=== PATIENT | male | born 1950 | race Caucasian/White ===

== ENCOUNTER → 2023-12-26 07:53 | Outpatient (REF) | payer MEDICARE, OTHER, SELFPAY ==
[2023-12-26 09:34] LABS: ALT (SGPT) 37 U/L (0-50); AST (SGOT) 36 U/L (17-59); Albumin 4.5 g/dl (3.5-5.0); Alkaline Phosphatase 106 U/L (38-126); Blood Urea Nitrogen 19 mg/dl (9-20); Calcium 9.4 mg/dl (8.4-10.2); Carbon Dioxide 25 mmol/L (22-30); Chloride 108 mmol/L (98-107); Glucose 115 mg/dl (70-99); Potassium 4.5 mmol/L (3.5-5.1); Sodium 140 mmol/L (135-145); Total Bilirubin 0.7 mg/dl (0.2-1.3); Total Protein 7.1 g/dl (6.3-8.2); eGFR > 60.00
[2023-12-26 09:55] LABS: TSH 2.88 uIU/ml (0.47-4.68)
== END ==
LOC: REG 07:53
PROVIDERS: ATTENDING PHYSICIAN Registered Nurse; FAMILY PHYSICIAN Family Medicine
DX: E03.9 Hypothyroidism, unspecified (principal); N28.9 Disorder of kidney and ureter, unspecified
CPT/HCPCS: 36415; 80053; 84443

== ENCOUNTER → 2024-02-09 09:25 | Outpatient (REF) | payer MEDICARE, OTHER, SELFPAY | LOC: RCS 09:25 | PROVIDERS: ATTENDING PHYSICIAN Nuclear Medicine Nuclear Cardiology; FAMILY PHYSICIAN Family Medicine | DX: I25.10 Atherosclerotic heart disease of native coronary artery without angina pectoris (principal) | CPT/HCPCS: 93306 ==

== ENCOUNTER → 2024-05-16 15:18 | Outpatient (REF) | payer MEDICARE, OTHER, SELFPAY | LOC: REG 15:18 | PROVIDERS: ATTENDING PHYSICIAN Internal Medicine Gastroenterology | DX: R19.4 Change in bowel habit (principal) | CPT/HCPCS: 87328; 87329 ==

== ENCOUNTER → 2024-06-29 06:21 | Day surgery (SDC) | payer MEDICARE, OTHER, SELFPAY | LOC: GI 06:21 | PROVIDERS: ATTENDING PHYSICIAN Internal Medicine Gastroenterology | DX: R19.4 Change in bowel habit (principal); K57.30 Diverticulosis of large intestine without perforation or abscess without bleeding; K64.8 Other hemorrhoids; D12.2 Benign neoplasm of ascending colon | CPT/HCPCS: 45380; 88305; 88342 ==

== ENCOUNTER → 2024-08-03 07:42 | Outpatient (REF) | payer MEDICARE, OTHER, SELFPAY ==
[2024-08-03 08:49] LABS: % Basophils 0.4 % (0-2); % Eosinophils 2.4 % (0-6); % Immature Granulocytes 0.2 % (0-0.5); % Lymphocytes 39.9 % (20.5-51.1); % Monocytes 8.1 % (1.7-9.3); Absolute Eosinophils 0.1 10^3/uL (0-0.7); Absolute Lymphocytes 2.2 10^3/uL (1.2-3.4); Absolute Monocytes 0.4 10^3/uL (0.1-0.6); Absolute Neutrophils 2.7 10^3/uL (1.4-6.5); Hematocrit 44.6 % (39.0-52.0); Hemoglobin 15.5 g/dL (13.0-18.0); Mean Corp Hgb Conc. 34.8 g/dL (33.0-37.0); Mean Corpuscular Hgb 33.3 pg (27.0-31.0); Mean Corpuscular Volume 95.7 fL (80.0-94.0); Mean Platelet Volume 9.2 fL (7.4-10.4); Nucleated Red Blood Cells % 0 % (-); Platelet Count 170 10^3/uL (130-400); Red Blood Cell Count 4.66 10^6/uL (4.70-6.10); Red Cell Dist. Width 13.2 % (11.5-14.5); White Blood Cell Count 5.4 10^3/uL (4.8-10.8)
[2024-08-03 09:20] LABS: ALT (SGPT) 32 U/L (0-50); AST (SGOT) 29 U/L (17-59); Albumin 4.2 g/dl (3.5-5.0); Alkaline Phosphatase 92 U/L (38-126); Blood Urea Nitrogen 23 mg/dl (9-20); Calcium 9.4 mg/dl (8.4-10.2); Carbon Dioxide 24 mmol/L (22-30); Chloride 108 mmol/L (98-107); Glucose 116 mg/dl (70-99); HDL Cholesterol 57 mg/dl; LDL Cholesterol, Calculated 43 mg/dl; Potassium 4.8 mmol/L (3.5-5.1); Sodium 144 mmol/L (135-145); Total Bilirubin 0.7 mg/dl (0.2-1.3); Total Cholesterol 125 mg/dl (50-199); Total Protein 6.8 g/dl (6.3-8.2); Triglyceride 125 mg/dl (10-149); Very Low Density Lipoprotein 25 mg/dl (0-30); eGFR > 60.00
[2024-08-03 09:47] LABS: TSH 0.46 uIU/ml (0.47-4.68)
[2024-08-05 01:18] LABS: CCP Antibody IgG/IgA 2 Units (0-19)
== END ==
LOC: REG 07:42
PROVIDERS: ATTENDING PHYSICIAN Internal Medicine; FAMILY PHYSICIAN Family Medicine; REFERRING PHYSICIAN Nuclear Medicine Nuclear Cardiology
DX: M06.9 Rheumatoid arthritis, unspecified (principal); I70.0 Atherosclerosis of aorta; J84.9 Interstitial pulmonary disease, unspecified; I10 Essential (primary) hypertension; E03.9 Hypothyroidism, unspecified; E78.2 Mixed hyperlipidemia; J21.9 Acute bronchiolitis, unspecified; F39 Unspecified mood [affective] disorder; M15.0 Primary generalized (osteo)arthritis; Z51.81 Encounter for therapeutic drug level monitoring
CPT/HCPCS: 36415; 80053; 80061; 84443; 85025; 86200; 86430

== ENCOUNTER 2024-09-04 06:28 | Day surgery (SDC) | payer MEDICARE, OTHER, SELFPAY ==
[2024-09-04 10:38] VITALS: BMI 25.9
[2024-09-04 10:39] VITALS: BMI 25.9
[2024-09-04 10:40] VITALS: BP 149/84; BMI 25.9
[2024-09-04 12:00] VITALS: BP 134/80
[2024-09-04 12:15] VITALS: BP 140/78
[2024-09-04 12:30] VITALS: BP 154/74
== END 2024-09-04 12:40 | disposition home or self-care (01) ==
LOC: SDS 06:28
PROVIDERS: ATTENDING PHYSICIAN Internal Medicine Gastroenterology
DX: D12.2 Benign neoplasm of ascending colon (principal); K57.30 Diverticulosis of large intestine without perforation or abscess without bleeding; R85.613 High grade squamous intraepithelial lesion on cytologic smear of anus (HGSIL); K64.0 First degree hemorrhoids
CPT/HCPCS: 45390; 45380; 88305; 88342

== ENCOUNTER → 2024-10-04 14:17 | Outpatient (REF) | payer MEDICARE, OTHER, SELFPAY | LOC: CLAB 14:17 | PROVIDERS: ATTENDING PHYSICIAN Surgery | DX: K62.82 Dysplasia of anus (principal) | CPT/HCPCS: 88305 ==

== ENCOUNTER → 2024-10-31 09:00 | Outpatient (REF) | payer MEDICARE, OTHER, SELFPAY ==
[2024-11-08 23:17] LABS: HPV, High Risk Not Detected; HPV, High Risk Source Anal
== END ==
LOC: CPAP 09:00
PROVIDERS: ATTENDING PHYSICIAN Surgery
DX: K62.82 Dysplasia of anus (principal)
CPT/HCPCS: 87624; 88112

== ENCOUNTER → 2025-01-16 07:40 | Outpatient (REF) | payer MEDICARE, OTHER, SELFPAY ==
[2025-01-16 08:50] LABS: % Basophils 0.4 % (0-2); % Eosinophils 2.1 % (0-6); % Immature Granulocytes 0.1 % (0-0.5); % Lymphocytes 29.4 % (20.5-51.1); % Monocytes 7.4 % (1.7-9.3); % Neutrophils 60.6 % (42.2-75.2); Absolute Eosinophils 0.2 10^3/uL (0-0.7); Absolute Lymphocytes 2.1 10^3/uL (1.2-3.4); Absolute Monocytes 0.5 10^3/uL (0.1-0.6); Absolute Neutrophils 4.3 10^3/uL (1.4-6.5); Hematocrit 45.1 % (39.0-52.0); Mean Corp Hgb Conc. 35.5 g/dL (33.0-37.0); Mean Corpuscular Hgb 32.5 pg (27.0-31.0); Mean Corpuscular Volume 91.7 fL (80.0-94.0); Mean Platelet Volume 9.3 fL (7.4-10.4); Nucleated Red Blood Cells % 0 % (-); Platelet Count 163 10^3/uL (130-400); Red Blood Cell Count 4.92 10^6/uL (4.70-6.10); Red Cell Dist. Width 13.1 % (11.5-14.5); White Blood Cell Count 7.1 10^3/uL (4.8-10.8)
[2025-01-16 10:06] LABS: ALT (SGPT) 39 U/L (0-50); AST (SGOT) 32 U/L (17-59); Albumin 4.2 g/dl (3.5-5.0); Alkaline Phosphatase 93 U/L (38-126); Blood Urea Nitrogen 19 mg/dl (9-20); Calcium 9.6 mg/dl (8.4-10.2); Carbon Dioxide 23 mmol/L (22-30); Chloride 109 mmol/L (98-107); Glucose 145 mg/dl (70-99); HDL Cholesterol 48 mg/dl; LDL Cholesterol, Calculated 15 mg/dl; Potassium 4.6 mmol/L (3.5-5.1); Sodium 141 mmol/L (135-145); Total Bilirubin 0.8 mg/dl (0.2-1.3); Total Cholesterol 96 mg/dl (50-199); Total Protein 6.9 g/dl (6.3-8.2); Triglyceride 168 mg/dl (10-149); Very Low Density Lipoprotein 33 mg/dl (0-30); eGFR > 60.00
[2025-01-16 10:22] LABS: Glycohemoglobin (HgbA1c) 6.5 % (4.0-5.6)
[2025-01-16 16:07] LABS: TSH Reflex To Free T4 0.56 uIU/ml (0.47-4.68)
== END ==
LOC: RCS 07:40
PROVIDERS: ATTENDING PHYSICIAN Nuclear Medicine Nuclear Cardiology; FAMILY PHYSICIAN Family Medicine
DX: I10 Essential (primary) hypertension (principal); I25.10 Atherosclerotic heart disease of native coronary artery without angina pectoris; E78.00 Pure hypercholesterolemia, unspecified; Z00.01 Encounter for general adult medical examination with abnormal findings; M06.9 Rheumatoid arthritis, unspecified; J84.9 Interstitial pulmonary disease, unspecified; E03.9 Hypothyroidism, unspecified; E78.2 Mixed hyperlipidemia; K21.9 Gastro-esophageal reflux disease without esophagitis; F42.9 Obsessive-compulsive disorder, unspecified; R73.9 Hyperglycemia, unspecified
CPT/HCPCS: 36415; 80053; 80061; 83036; 84443; 85025; 93306

== ENCOUNTER 2025-03-05 06:06 | Day surgery (SDC) | payer MEDICARE, OTHER, SELFPAY ==
[2025-03-05 07:46] VITALS: BMI 24.4
[2025-03-05 07:49] VITALS: BP 141/86
[2025-03-05 09:42] VITALS: BP 117/69
[2025-03-05 09:45] VITALS: BP 117/85
[2025-03-05 10:00] VITALS: BP 131/101
[2025-03-05 10:08] VITALS: BP 137/68
[2025-03-05 10:15] VITALS: BP 127/101
== END 2025-03-05 10:30 | disposition home or self-care (01) ==
LOC: SDS 06:06
PROVIDERS: ATTENDING PHYSICIAN Internal Medicine Gastroenterology
DX: Z09 Encounter for follow-up examination after completed treatment for conditions other than malignant neoplasm (principal); K64.1 Second degree hemorrhoids; T18.4XXA Foreign body in colon, initial encounter; W44.8XXA Other foreign body entering into or through a natural orifice, initial encounter; K57.30 Diverticulosis of large intestine without perforation or abscess without bleeding; K63.5 Polyp of colon; Z98.890 Other specified postprocedural states; Z86.0101 Personal history of adenomatous and serrated colon polyps
CPT/HCPCS: 45388; 45379; 88305

== ENCOUNTER 2025-04-08 09:33 | Emergency (ER) | payer MEDICARE, OTHER, SELFPAY ==
[2025-04-08 09:35] VITALS: BP 131/75
[2025-04-08 11:09] VITALS: BP 119/71
[2025-04-08 11:10] VITALS: BP 119/71; BMI 27.4
[2025-04-08] MEDS: MORPHINE SULFATE 4 MG IV (12:30)
[2025-04-08] MEDS: TORADOL 15 MG IV (12:30)
[2025-04-08] MEDS: DECADRON 10 MG IV (12:30)
[2025-04-08] MEDS: VALIUM INJECTION 2 MG IV (12:32)
--- NOTE | 2025-04-08 12:35 | ED.GENMED ---
History of Present Illness
General
Chief Complaint: Back Pain
Source: patient
Exam Limitations: none
Time Seen by Provider: 04/08/25 11:18
Nursing documentation reviewed up to this point in time: agreed with
History of Present Illness
History of Present Illness:
74-year-old male with history as noted significant for chronic low back pain and multiple surgeries presents to the emergency room for evaluation of low back pain. He says that for the past few weeks his back pain has been flaring up. Patient
follows with Dr. Abdi and has had multiple surgeries in the past, recently has been seeing the PA in the office and 2 weeks ago had a back injection and was started on steroid pack, gabapentin and tramadol. He says that his symptoms did briefly
improve while on steroids but steroids finished last week and pain has been unmanageable since. He reports intense pain in the left low back that does occasionally radiate across the back but more consistently radiates into the left hip and down
the left leg. He says that the pains down the left leg are sharper and more intense. Pain is worse with any movement. He did report transient improvement with steroids as above but symptoms flared up again after steroids completed and despite
continuing to take gabapentin and tramadol symptoms are poorly controlled. He has chronic numbness and weakness in the left leg related to prior surgeries but no new numbness or weakness. No symptoms in the right leg. Denies any saddle anesthesia
or bowel or bladder incontinence. He has not had fever or chills. He denies any trauma recently.
Past History
Past History
ED Past Medical History: CAD, GERD, HTN, Hypercholesterolemia, PA (08/14), Hypothyroidism, Psychiatric (Anxiety) and Other (Osteoarthritis, Back and neck pain, Lyme, )
ED Past Surgical History: Cardiac (PTCA with stent mid LAD August 2012. Cardiac catheter April 2013 shows widely patent stent, no significant coronary artery disease), Orthopedic (left great toe surgery, Lumbar laminectomy, Cervical laminectomy),
Urological (epididectomy) and Other ( L Inguinal hernia repair, vasectomy, Dental implants, gastrofundoplication)
Social History
Tobacco: Former smoker
Alcohol: Daily (1/2 glasses wine)
Drug: None
Personal:
Living: with family
Employment: Retired
Family History
Family History: Hypertension
Review of Systems
Review of Systems
All Other Systems: ROS reviewed and negative except as documented in HPI and ROS
Constitutional: Denies fever or chills
Respiratory: Denies trouble breathing
Cardiac: Denies chest pain
ABD/GI: Denies abdominal pain
Musculoskeletal: Reports muscle stiffness and back pain; Denies neck pain
Neurological: Denies headache
Phy Exam
Physical Exam
Physical Exam:
General: Awake, alert, oriented x3; appears uncomfortable laying on his side of the bed
Head: Normocephalic, atraumatic
Eyes: Conjunctiva normal
Throat: Airway intact, handling secretions
Neck: Trachea midline, supple without meningismus
Lungs: Breathing comfortably without distress
Heart: Regular rate
Abd: Soft, non distended, nontender
Back: Patient has multiple surgical scars in the low back; he does have marked paraspinal tenderness on the left L4-S1 region
Neuro: Cranial nerves grossly intact, speech fluid; he does have some weakness on dorsiflexion of the left foot/great toe and some subjective diminished sensation throughout the leg on the left; motor and sensory intact in the right leg
Skin: no rash in area of concern
Extremities: No edema in extremities, equal pulses in all extremities
Scores
Heart Failure Risk
Heart Failure Risk Score: Not Applicable
Heart Score for Chest Pain Patients
STEMI patient?: Not applicable
Withdrawal Assessment of Alcohol
Withdrawal Assessment Completed?: Not applicable
Course
Orders/Labs/Results
Orders:
Orders
04/08/25 11:20
CR Lumbar Spine 2 Or 3 Views Urgent
Comment:
Reason For Exam: low back pain
04/08/25 12:06
Dexamethasone Sod Phosphate [Decadron] 10 mg IV NOW STA
Ketorolac [Toradol] 15 mg IV NOW STA
Morphine Sulfate 4 mg IV NOW STA
diazePAM [Valium Injection] 2 mg IV NOW STA
04/08/25 13:31
Oxycodone/Acetaminophen [Percocet 5/325] 1 tablet PO NOW STA
Vital Signs
Initial and Last Documented VS:
Initial Vital Signs
Temp Pulse Resp BP Pulse Ox
36.8 C 88 16 131/75 97
04/08/25 09:35 04/08/25 09:35 04/08/25 09:35 04/08/25 09:35 04/08/25 09:35
Last Documented Vital Signs
Temp Pulse Resp BP Pulse Ox
36.8 C 63 18 108/69 95
04/08/25 09:35 04/08/25 11:10 04/08/25 11:10 04/08/25 14:00 04/08/25 14:16
MDM/Problems Addressed
Differential Diagnosis Includes:
Herniated disc, degenerative disease/spinal stenosis, myofascial strain
MDM/Problems Addressed:
74-year-old male presents for evaluation of uncontrolled low back pain acute on chronic as described above. Vitals and exam as above. No red flag symptoms or exam findings. This seems to be likely related to degenerative changes with sciatica
symptoms. Sent for an x-ray which shows significant degenerative and postsurgical changes but no acute fracture. Will plan to treat symptomatically and reassess. In my judgment no indication for emergent MRI. I did send a message to Dr. Abdi to
update on patient.
Patient feeling better after treatment here. Stable for discharge to follow-up as an outpatient that she has an appointment now with Dr. Abdi's office on . Spoke about return precautions follow-up plan. All questions answered
*Radiology
Radiology exam reviewed: preliminary read by ED provider
*Pulse Oximetry
SaO2: 95
Oxygen Mode of Delivery: Room air
Patient hypoxic: no (95%)
*Critical Care Note
Total Time (30-74mins, 75-104mins- exclusive of procedures): Not Applicable
Data Reviewed
Source: patient, records and spouse
Patient Management
Discussion with other providers: Wet Process Technician (Discussed with spine surgeon)
ED Attending Note
-
Portions of this chart may have been created with voice recognition software.� Occasional wrong word or��sound alike� substitutions may have occurred due to the inherent limitations of voice recognition software.
Discharge Plan
Departure
Patient Disposition: Home (Routine Discharge)
Date of Disposition: 04/08/25
Time of Disposition: 14:44
Patient with high blood pressure during this ER visit?: No
Discharge Problem:
Acute low back pain with sciatica
Instructions: Low Back Pain (DC), Radiculopathy (DC)
Prescriptions:
New
oxycodone-acetaminophen [Percocet] 5-325 mg tablet
1 tab PO Q6HPRN PRN (Reason: pain) Qty: 14 0RF
lidocaine 5 % adhesive patch,medicated
1 patch topical DAILY Qty: 30 0RF
prednisone 10 mg Tablet
See Rx Instructions .ROUTE .COMPLEX Qty: 45 0RF
Rx Instructions:
Take By Mouth:
50 mg daily x3 days, 40 mg daily x3 days,
30 mg daily x3 days, 20 mg daily x3 days,
10 mg daily x3 days
No Action
Repatha SureClick 140 mg/mL Pen Injector
140 mg SC Q2W
cyanocobalamin (vitamin B-12) [Vitamin B-12] 1,000 mcg Tablet
1,000 mcg PO DAILY
celecoxib [Celebrex] 200 mg Capsule
200 mg PO DAILY
acetaminophen [Tylenol] 325 mg Tablet
650 mg PO Q4HPRN PRN (Reason: MILD PAIN)
aspirin 81 mg Tablet,Delayed Release (Dr/Ec)
81 mg PO DAILY
cholecalciferol (vitamin D3) [Vitamin D3] 25 mcg (1,000 unit) Tablet
25 mcg PO DAILY
simvastatin [Zocor] 40 mg Tablet
40 mg PO DAILY
levothyroxine [Synthroid] 88 mcg tablet
100 mcg PO DAILY
loratadine [Claritin] 10 mg Tablet
10 mg PO DAILY
lisinopril 5 mg Tablet
5 mg PO DAILY
escitalopram oxalate [Lexapro] 20 mg tablet
20 mg PO DAILY Qty: 30 0RF
Referrals:
Gurpreet Abdi MD [Active, Orthopedics] - Call in 1-3 days for appt
Дмитрий Rogers MD [Family Provider, Family Practice]
Activity Restrictions/Additional Instructions:
Thank you for visiting the Emergency Department at [facility].
1. Please schedule a follow up appointment as directed. Call first thing tomorrow morning to make an appointment.
2. If indicated, please take your medications as instructed and indicated on discharge paperwork.
3. If any of your symptoms do not improve, or persist, or become more severe within 6-12 hours, please return to the emergency department for further care.
4. Please return to the emergency department if you develop a headache, neck pain/stiffness, fever greater than 100.4F, chest pain, shortness of breath, persistent nausea, vomiting, slurred speech, difficulty walking, numbness/tingling, weakness,
signs of infection or any other symptoms that are worrisome to you.
Please call [phone] if you have any questions.
Interventions
Interventions:
*Risk Screen - Suicide Last Done: 04/08/25 11:05
*General Assessment Last Done: 04/08/25 11:05
*Neglect/Abuse Screening Last Done: 04/08/25 11:05
*ED- Fall Risk Assessment Last Done: 04/08/25 11:05
*ED COVID-19 Vaccine History Last Done: 04/08/25 11:05
ED-Musculoskeletal Assessment Last Done: 04/08/25 11:05
Discharge Date and Time
Print Language: ETHIOPIAN
[2025-04-08 13:40] VITALS: BP 115/73
[2025-04-08] MEDS: PERCOCET 5/325 1 TABLET PO (13:40)
[2025-04-08 14:00] VITALS: BP 108/69
== END 2025-04-08 14:57 | disposition home or self-care (01) ==
LOC: EMR 09:33
PROVIDERS: EMERGENCY PHYSICIAN Emergency Medicine; FAMILY PHYSICIAN Family Medicine
DX: M54.42 Lumbago with sciatica, left side (principal); E03.9 Hypothyroidism, unspecified; E78.00 Pure hypercholesterolemia, unspecified; G89.29 Other chronic pain; I10 Essential (primary) hypertension; I25.10 Atherosclerotic heart disease of native coronary artery without angina pectoris; Z87.891 Personal history of nicotine dependence; Z95.5 Presence of coronary angioplasty implant and graft
CPT/HCPCS: 96374; 96375; 99284; 72100

== ENCOUNTER → 2025-04-25 06:55 | Outpatient (REF) | payer MEDICARE, OTHER, SELFPAY ==
[2025-04-25 09:17] LABS: Hematocrit 41.4 % (39.0-52.0); Hemoglobin 14.6 g/dL (13.0-18.0); Mean Corp Hgb Conc. 35.3 g/dL (33.0-37.0); Mean Corpuscular Volume 93.0 fL (80.0-94.0); Nucleated Red Blood Cells % 0 % (-); Platelet Count 191 10^3/uL (130-400); Red Cell Dist. Width 13.0 % (11.5-14.5)
[2025-04-25 09:58] LABS: Glycohemoglobin (HgbA1c) 8.0 % (4.0-5.6)
[2025-04-25 11:18] LABS: ALT (SGPT) 25 U/L (0-50); AST (SGOT) 18 U/L (17-59); Albumin 4.2 g/dl (3.5-5.0); Alkaline Phosphatase 96 U/L (38-126); Blood Urea Nitrogen 14 mg/dl (9-20); Calcium 9.3 mg/dl (8.4-10.2); Carbon Dioxide 24 mmol/L (22-30); Chloride 101 mmol/L (98-107); Glucose 149 mg/dl (70-99); HDL Cholesterol 70 mg/dl; LDL Cholesterol, Calculated 4 mg/dl; Potassium 4.7 mmol/L (3.5-5.1); Sodium 133 mmol/L (135-145); Total Protein 6.8 g/dl (6.3-8.2); Very Low Density Lipoprotein 27 mg/dl (0-30); eGFR > 60.00
[2025-04-25 11:46] LABS: TSH 1.81 uIU/ml (0.47-4.68)
== END ==
LOC: REG 06:55
PROVIDERS: ATTENDING PHYSICIAN Family Medicine
DX: M06.9 Rheumatoid arthritis, unspecified (principal); J84.9 Interstitial pulmonary disease, unspecified; I10 Essential (primary) hypertension; E03.9 Hypothyroidism, unspecified; E78.2 Mixed hyperlipidemia; K21.9 Gastro-esophageal reflux disease without esophagitis; G47.00 Insomnia, unspecified; R73.9 Hyperglycemia, unspecified
CPT/HCPCS: 36415; 80053; 80061; 83036; 84443; 85025

== ENCOUNTER → 2025-06-17 07:41 | Outpatient (REF) | payer MEDICARE, OTHER, SELFPAY ==
[2025-06-17 09:03] LABS: Hematocrit 41.1 % (39.0-52.0); Hemoglobin 14.0 g/dL (13.0-18.0); Mean Corp Hgb Conc. 34.1 g/dL (33.0-37.0); Mean Corpuscular Volume 93.6 fL (80.0-94.0); Nucleated Red Blood Cells % 0 % (-); Platelet Count 216 10^3/uL (130-400); Red Cell Dist. Width 13.2 % (11.5-14.5)
[2025-06-17 09:51] LABS: ALT (SGPT) 27 U/L (0-50); AST (SGOT) 26 U/L (17-59); Albumin 4.3 g/dl (3.5-5.0); Alkaline Phosphatase 104 U/L (38-126); Blood Urea Nitrogen 20 mg/dl (9-20); Calcium 9.8 mg/dl (8.4-10.2); Carbon Dioxide 23 mmol/L (22-30); Chloride 108 mmol/L (98-107); Glucose 131 mg/dl (70-99); Potassium 4.9 mmol/L (3.5-5.1); Sodium 138 mmol/L (135-145); Total Protein 7.1 g/dl (6.3-8.2); eGFR > 60.00
== END ==
LOC: REG 07:41
PROVIDERS: ATTENDING PHYSICIAN Internal Medicine Interventional Cardiology
DX: I10 Essential (primary) hypertension (principal); E78.00 Pure hypercholesterolemia, unspecified; I25.10 Atherosclerotic heart disease of native coronary artery without angina pectoris
CPT/HCPCS: 36415; 80053; 85025

== ENCOUNTER → 2025-06-21 06:50 | Day surgery (SDC) | payer MEDICARE, OTHER, SELFPAY ==
[2025-06-21] VITALS (12 sets, daily range): BP systolic 99–131; BP diastolic 59–73; BMI 24.9
[2025-06-21 07:42] LABS: Glucose - Point of Care 92 mg/dl (70-99)
[2025-06-21] MEDS: NSS 216 ML IV (08:05)
--- NOTE | 2025-06-21 09:54 | ITS.CL.CATH ---
Compliance And Control Analyst - Catheterization
Cardiac Catheterization
Procedure Report:
RIGHT AND LEFT HEART STUDY
Date of Procedure: June 21, 2025
Referring: Dr. Mayank Davis
PROCEDURES:
1. Right heart catheterization
2. Left heart catheterization with coronary and single-plane left ventriculography
INDICATION: This is a 75-year-old gentleman with a remote history of coronary artery disease and remote stenting of the LAD in 2012. He does have a history of interstitial lung disease and follows with Dr. Smith. He also has noticed significant
functional limitations and chest discomfort at very low levels of exertion such as when walking from his golf cart to a golf niko.
ACCESS: Right common femoral artery and right common femoral vein
HEMODYNAMICS : mmHg
RA (m) : 12
RV (s/d) : 42/14, 13
PA (s/d, m) : 45/17, 27
PCWP (m) : 16
AO (s/d, m) : 138/63, 91
LV (s/d) : 132/8
LVEDP : 26
Estimated [place] Cardiac Output: 4.6 L / min and Cardiac Index: 2.5 L/ min / m-2
Systemic vascular resistance: 17.2 Wood units or 1374 [id number](-5)
Pulmonary vascular resistance: 2.4 Wood units or 191 [id number](-5)
CORONARY FINDINGS :
Dominance: Right
LEFT MAIN: 35% mid stenosis
LEFT ANTERIOR DESCENDING: The LAD arises normally from the left main. There is a stent in the mid LAD that is widely patent. The LAD tapers to a rather small caliber vessel as it approaches the apex
RAMUS: Small caliber bifurcating vessel into 2 daughter branches. The more lateral branch has a 60% angiographically stable stenosis
CIRCUMFLEX: Small caliber nondominant vessel with minor irregularities over its course
RIGHT CORONARY ARTERY: The right coronary artery is a dominant vessel with minor irregularities over its course
VENTRICULOGRAPHY: Left ventriculography is performed in an DOLAN projection. The degenerative syncope left ventricular ejection fraction is visually estimated at 55-60%
SEDATION: 55 minutes of procedural sedation was utilized. An independent medical delivery driver was present to assist with and help manage the patient's level of consciousness and physiologic status
RADIATION SUMMARY: Fluoro Time (min): 6.7, Dose (mGy): 317, DAP (Gy.cm2) : 28.3
CONCLUSIONS
1. Nonobstructive coronary disease with stable coronary anatomy and widely patent mid LAD stent
2. Compensated right and left ventricular filling pressures
RECOMMENDATIONS
1. Will add low-dose amlodipine to see if vasodilator may help with blood pressure control and potential microvascular issues
2. Continue to monitor home blood pressures. May consider further titration of amlodipine or addition of long-acting nitrate if symptoms are not improved
3. Could consider PET/CT imaging in future to assess for significant areas of ischemia
Copy to: Dr. Mayank Davis
[2025-06-21] MEDS: NSS 1000 IV (10:05)
[2025-06-21] MEDS: TYLENOL 650 MG PO (10:19)
== END | disposition home or self-care (01) ==
LOC: CATH 06:50
PROVIDERS: ATTENDING PHYSICIAN Internal Medicine Interventional Cardiology; FAMILY PHYSICIAN Family Medicine; OTHER PHYSICIAN Nuclear Medicine Nuclear Cardiology
DX: I25.10 Atherosclerotic heart disease of native coronary artery without angina pectoris (principal); J84.9 Interstitial pulmonary disease, unspecified; Z95.5 Presence of coronary angioplasty implant and graft; R07.89 Other chest pain; Z79.82 Long term (current) use of aspirin; Z79.899 Other long term (current) drug therapy; Z79.890 Hormone replacement therapy; Z79.84 Long term (current) use of oral hypoglycemic drugs
CPT/HCPCS: 99152; 99153; 82962; 93460; C1760; C1769; C1894; Q9967

== ENCOUNTER → 2025-08-02 13:12 | Outpatient (REF) | payer MEDICARE, OTHER, SELFPAY ==
[2025-08-02 14:33] LABS: PSA, Total - Screen 2.37 ng/ml (0.0-4.0)
== END ==
LOC: REG 13:12
PROVIDERS: ATTENDING PHYSICIAN Specialist; FAMILY PHYSICIAN Family Medicine
DX: Z12.5 Encounter for screening for malignant neoplasm of prostate (principal)
CPT/HCPCS: 36415; G0103

== ENCOUNTER → 2025-08-22 07:24 | Outpatient (REF) | payer MEDICARE, OTHER, SELFPAY ==
[2025-08-22 08:17] LABS: Hematocrit 44.0 % (39.0-52.0); Hemoglobin 15.1 g/dL (13.0-18.0); Mean Corp Hgb Conc. 34.3 g/dL (33.0-37.0); Mean Corpuscular Volume 90.9 fL (80.0-94.0); Nucleated Red Blood Cells % 0 % (-); Platelet Count 214 10^3/uL (130-400); Red Cell Dist. Width 13.5 % (11.5-14.5)
[2025-08-22 08:58] LABS: ALT (SGPT) 27 U/L (0-50); AST (SGOT) 25 U/L (17-59); Albumin 4.3 g/dl (3.5-5.0); Alkaline Phosphatase 78 U/L (38-126); Blood Urea Nitrogen 15 mg/dl (9-20); Calcium 9.5 mg/dl (8.4-10.2); Carbon Dioxide 25 mmol/L (22-30); Chloride 108 mmol/L (98-107); Glucose 120 mg/dl (70-99); HDL Cholesterol 56 mg/dl; LDL Cholesterol, Calculated 2 mg/dl; Potassium 4.4 mmol/L (3.5-5.1); Sodium 136 mmol/L (135-145); Total Protein 7.0 g/dl (6.3-8.2); Very Low Density Lipoprotein 25 mg/dl (0-30); eGFR > 60.00
[2025-08-22 09:35] LABS: Glycohemoglobin (HgbA1c) 7.2 % (4.0-5.9)
== END ==
LOC: REG 07:24
PROVIDERS: ATTENDING PHYSICIAN Family Medicine
DX: M06.9 Rheumatoid arthritis, unspecified (principal); I10 Essential (primary) hypertension; E03.9 Hypothyroidism, unspecified; E78.2 Mixed hyperlipidemia; M54.16 Radiculopathy, lumbar region; E09.9 Drug or chemical induced diabetes mellitus without complications; T38.0X5A Adverse effect of glucocorticoids and synthetic analogues, initial encounter; R51.9 Headache, unspecified; R20.0 Anesthesia of skin
CPT/HCPCS: 36415; 80053; 80061; 83036; 84403; 84439; 84443; 85025

== ENCOUNTER → 2025-08-26 14:45 | Outpatient (REF) | payer MEDICARE, OTHER, SELFPAY | LOC: HWRAD 14:45 | PROVIDERS: ATTENDING PHYSICIAN Family Medicine | DX: R51.9 Headache, unspecified (principal) | CPT/HCPCS: 70450 ==